=== PATIENT | male | born 1960 | race Caucasian/White ===

== ENCOUNTER 2016-07-31 12:32 | Emergency (ER) | payer SELFPAY ==
[~2016-07-31] VITALS: Ht 182.9 cm; Wt 80.9 kg
[~2016-07-31 12:32] MED LIST: AMOXICILLIN 50500 MG PO; DOXYCYCLINE 10100 MG PO; MEPEREDINE50 MG PO; NO HOME MEDICATIONS; NORCO 325 MG-51 TAB PO
[2016-07-31 12:37] VITALS: TEMP 98.1
[2016-07-31] MEDS ORDERED: NORCO 325 MG-51 TAB PO (13:53)
[2016-07-31 14:12] VITALS: BP 179/112; PULSE 77
== END 2016-07-31 14:15 | disposition home or self-care (01) ==
LOC: COL.ER 12:32
DX: S60.222A Contusion of left hand, initial encounter (principal); S60.221A Contusion of right hand, initial encounter; W22.8XXA Striking against or struck by other objects, initial encounter

== ENCOUNTER 2016-09-06 18:56 | Emergency (ER) | payer SELFPAY ==
[~2016-09-06] VITALS: Ht 182.9 cm; Wt 76.4 kg
[2016-09-06 19:01] VITALS: TEMP 98.4
[2016-09-06] MEDS ORDERED: ULTRAM 50MG TAB50 MG PO (20:20)
[2016-09-06 20:40] VITALS: BP 158/105; PULSE 82
== END 2016-09-06 20:42 | disposition home or self-care (01) ==
LOC: COL.ER 18:56
DX: S46.911A Strain of unspecified muscle, fascia and tendon at shoulder and upper arm level, right arm, initial encounter (principal); S39.012A Strain of muscle, fascia and tendon of lower back, initial encounter; W11.XXXA Fall on and from ladder, initial encounter; Y92.008 Other place in unspecified non-institutional (private) residence as the place of occurrence of the external cause
CPT/HCPCS: J1885

== ENCOUNTER 2018-09-03 01:24 | Emergency (ER) | payer MEDICAID ==
[~2018-09-03] VITALS: Ht 182.9 cm; Wt 75.0 kg
[~2018-09-03 01:24] MED LIST changes: +ULTRAM 50MG TAB50 MG PO
[2018-09-03 01:31] VITALS: TEMP 97
[2018-09-03] MEDS ORDERED: TOPROL XL 50MG50 MG PO (02:14)
[2018-09-03] MEDS ORDERED: ATARAX 25MG25 MG/TAB (02:14)
[2018-09-03] MEDS ORDERED: ZOLOFT 50MG50 MG PO (02:15)
[2018-09-03 02:40] LABS: COLLECTION METHOD CLEAN CATCH
[2018-09-03 02:50] LABS: MUCOUS Present /lpf; PH 6 (5-8); SQUAMOUS EPITHELIAL None Seen /hpf; URINE APPEARANCE Clear; URINE BACTERIA None Seen /hpf; URINE BILIRUBIN Negative (NEGATIVE); URINE BLOOD Negative (NEGATIVE); URINE COLOR Yellow; URINE GLUCOSE Negative (NEGATIVE); URINE KETONE Negative (NEGATIVE); URINE LEUKOCYTE ESTERASE Negative (NEGATIVE); URINE NITRATE Negative (NEGATIVE); URINE PROTEIN(semi-quant) Negative (NEGATIVE)
[2018-09-03] MEDS ORDERED: FLEXERIL 1010 MG/TAB PO (03:54)
[2018-09-03 04:09] VITALS: BP 146/97; PULSE 69
== END 2018-09-03 04:09 | disposition home or self-care (01) ==
LOC: COL.ER 01:24
PROVIDERS: Nurse Practitioner
DX: M54.5 Low back pain (principal); I10 Essential (primary) hypertension; F32.9 Major depressive disorder, single episode, unspecified; F41.9 Anxiety disorder, unspecified; F17.210 Nicotine dependence, cigarettes, uncomplicated; Z88.5 Allergy status to narcotic agent
CPT/HCPCS: J1170

== ENCOUNTER 2019-01-10 12:17 | Emergency (ER) | payer SELFPAY ==
[~2019-01-10] VITALS: Ht 182.9 cm; Wt 76.4 kg
[~2019-01-10 12:17] MED LIST changes: +ATARAX 25MG25 MG/TAB; +FLEXERIL 1010 MG/TAB PO; +TOPROL XL 50MG50 MG PO; +ZOLOFT 50MG50 MG PO
[2019-01-10 12:39] VITALS: BP 123/83; TEMP 99.2
[2019-01-10] MEDS ORDERED: MAGIC MOUTHWASH1 M1 PO (14:50)
[2019-01-10 15:05] VITALS: PULSE 81
== END 2019-01-10 15:05 | disposition home or self-care (01) ==
LOC: COL.ER 12:17
DX: T28.5XXA Corrosion of mouth and pharynx, initial encounter (principal); F32.9 Major depressive disorder, single episode, unspecified; F41.9 Anxiety disorder, unspecified; F17.210 Nicotine dependence, cigarettes, uncomplicated

== ENCOUNTER 2019-10-23 11:15 | Emergency (ER) | payer SELFPAY ==
[~2019-10-23] VITALS: Ht 182.9 cm; Wt 63.6 kg
[~2019-10-23 11:15] MED LIST changes: +MAGIC MOUTHWASH1 M1 PO
[2019-10-23 11:18] VITALS: TEMP 97.7
[2019-10-23 12:31] LABS: BASO # 0.1 (0.0-0.2); BASO % 0.5 % (0.0-2.0); EOS # 0.1 (0.0-0.7); EOS % 0.6 % (0-4.0); GRAN # 6.8 (1.4-6.5); GRAN % 67.2 % (42.2-75.2); HEMATOCRIT 41.4 % (42.0-52.0); LYMPH # 2.3 (1.2-3.4); LYMPH % 22.9 % (20.0-51.0); MEAN CELL VOLUME 91 fl (80.0-100.0); MEAN CORPUSCULAR HEMOGLOBIN 31 pg (27.0-31.0); MEAN CORPUSCULAR HGB CONC 34 g/dl (33.0-37.0); MEAN PLATELET VOLUME 9.6 fl (7.4-10.4); MONO # 0.9 (0.1-0.6); MONO % 8.5 % (1.7-9.3); PLATELET COUNT 286 K/mm3 (130-400); RED BLOOD COUNT 4.54 M/mm3 (4.20-5.60); REDCELL DISTRIBUTION WIDTH-CV 13.3 % (11.5-14.5)
[2019-10-23 12:39] LABS: BILIRUBIN,TOTAL 0.5 mg/dL (0.0-1.0); CALCIUM 9.1 mg/dL (8.4-10.2); CREATININE, serum 0.73 (0.66-1.25); POTASSIUM 3.5 mmol/L (3.4-5.0); TOTAL PROTEIN 7.5 gm/dL (6.4-8.2)
[2019-10-23 14:06] LABS: COLLECTION METHOD CLEAN CATCH
[2019-10-23 14:16] LABS: PH 8 (5-8); SQUAMOUS EPITHELIAL None Seen /hpf; URINE APPEARANCE Clear; URINE BACTERIA None Seen /hpf; URINE BILIRUBIN Negative (NEGATIVE); URINE BLOOD Negative (NEGATIVE); URINE COLOR Yellow; URINE GLUCOSE Negative (NEGATIVE); URINE KETONE Negative (NEGATIVE); URINE LEUKOCYTE ESTERASE Negative (NEGATIVE); URINE NITRATE Negative (NEGATIVE); URINE PROTEIN(semi-quant) Negative (NEGATIVE); URINE UROBILINOGEN Negative (NEGATIVE)
[2019-10-23] MEDS ORDERED: NORCO 325 MG-51 TAB PO (14:27)
[2019-10-23] MEDS ORDERED: NAPROXEN 3375 MG/TAB PO (14:27)
[2019-10-23 15:51] VITALS: BP 161/104; PULSE 80
== END 2019-10-23 16:00 | disposition home or self-care (01) ==
LOC: COL.ER 11:15
PROVIDERS: Emergency Medicine
DX: R10.31 Right lower quadrant pain (principal); M79.18 Myalgia, other site; F17.210 Nicotine dependence, cigarettes, uncomplicated
CPT/HCPCS: J1170; J1885; J2405; J7030; Q9967